=== PATIENT | male | born 1945 | race Caucasian/White ===

== ENCOUNTER 2018-06-16 22:06 | Emergency (ER) | payer OTHER ==
[~2018-06-16] VITALS: Ht 182.9 cm; Wt 105.2 kg
[~2018-06-16 22:06] MED LIST: ASPIRIN325; KEFLEX500 MG PO; LEVAQUIN 500 M500 MG PO; MULTIVITAMINS; NORCO 5-325 TA1 EACH PO
[2018-06-17 01:19] VITALS: BP 149/83
== END 2018-06-17 01:20 | disposition home or self-care (01) ==
LOC: ER 22:06
DX: S01.111A Laceration without foreign body of right eyelid and periocular area, initial encounter (principal); S80.212A Abrasion, left knee, initial encounter; S80.211A Abrasion, right knee, initial encounter; S00.31XA Abrasion of nose, initial encounter; S60.512A Abrasion of left hand, initial encounter; Z88.0 Allergy status to penicillin; W01.198A Fall on same level from slipping, tripping and stumbling with subsequent striking against other object, initial encounter; Y93.89 Activity, other specified; Y92.89 Other specified places as the place of occurrence of the external cause; Y99.8 Other external cause status